=== PATIENT | female | born 1995 | race Caucasian/White ===

== ENCOUNTER 2017-09-01 17:57 | Emergency (ER) | payer OTHER ==
[~2017-09-01] VITALS: Ht 160 cm; Wt 50.9 kg
[~2017-09-01 17:57] MED LIST: LAMO25TA PO; SERT25TA PO
[2017-09-01 18:08] VITALS: TEMP 37; Ht 160 cm; Wt 50.9 kg
[2017-09-01] MEDS ORDERED: KETOROLAC TROMETHAMINE 60 MG/2 ML VIAL IM STA (18:35)
[2017-09-01] MEDS ORDERED: DULO60CA44 PO (19:08)
[2017-09-01] MEDS ORDERED: ATOM100C PO (19:08)
[2017-09-01] MEDS ORDERED: AMPH20CA3 PO (19:08)
--- NOTE | 2017-09-01 19:12 | EMERGENCY ROOM VISIT NOTE ---
ED Visit Note First contact with patient: 18:19 CHIEF COMPLAINT: Right upper arm pain, history Nexplanon HISTORY OF PRESENT ILLNESS: This 22-year-old female patient presents to the emergency department, ambulatory, complaining of pain in the right upper arm 5 days. The patient states she has a Nexplanon in this area, which was implanted approximately 2-1/2 years ago. She states she is scheduled to have the device removed in March. The patient states on Saturday she was in class, and a classmate was practicing blood pressures. They performed a blood pressure over the Nexplanon device, and she states since that time, she has been having some numbness in the right upper extremity, worse in the area of the elbow and radiating down towards the forearm, and sharp pain in the area of the device. The patient has been taking intermittent Tylenol without relief of her pain. She states the tingling sensation has been present since this occurred, however has been improving mildly. The sharp pain has not improved in the area of the device. She does feel that the device may have shifted slightly from where it was previously. The patient is uncertain who placed the device, but she does have an appointment with her liberal arts dean scheduled in October. She states it did occur locally. The patient denies any redness, pus, or drainage. She denies any mass or nodule noted. She denies any significant obvious swelling. The patient has full range of motion of the upper extremity. REVIEW OF SYSTEMS: A 6 system review of systems was performed with positives and pertinent negatives listed in the history of present illness. All other systems were reviewed and are negative. ALLERGIES: None MEDICATIONS: Ambien, Strattera, Adderall XR, Cymbalta, Lamictal PMH: ADHD SOCIAL HISTORY: The patient lives locally with her roommate. She denies drug, alcohol, tobacco use. PHYSICAL EXAM: VITALS: Vitals are noted on the nurse's note and reviewed by myself. Vital signs stable. GENERAL: This is a 22-year-old white female, in no acute distress, nondiaphoretic, well-developed well-nourished. SKIN: There is no erythema, edema, or drainage in the area of the Nexplanon device. The device does appear to have shifted extremely minimally from the location of the scar. The device is mobile within the upper arm, and there are no palpable masses or suspicious signs for abscess or cyst noted. There is no obvious hematoma or bruising noted. There is mild tenderness in the area of the Nexplanon. MUSCULOSKELETAL: Full range of motion actively and passively of the right upper extremity at all joints. The patient's strength is 5/5 of the upper extremities bilaterally. EMERGENCY DEPARTMENT COURSE: The patient was seen and evaluated as above. I discussed with the patient that I do not see any suspicious causes for infection or abscess. There is no obvious hematoma. There is no significant noticeable swelling, however I suspect some inflammation due to the pressure of the blood pressure cuff, causing some paresthesias in the upper arm. I did recommend that the patient take scheduled anti-inflammatories for the next 3-5 days and follow-up with her liberal arts dean. The patient was given 60 mg Toradol here in the emergency department and an ice pack to help with inflammation. She was reassessed and is feeling much better. She was encouraged to follow-up outpatient with her liberal arts dean and was in agreement with this plan. Discharge instructions reviewed. The patient was given a homepack for Naproxen to take for the next 3-5 days or until symptoms improve. The patient was discharged home in good condition. I attest that I have personally reviewed the patient's current medication list. Blood Pressure Screening: Patient was found to have a slightly elevated blood pressure due to circumstances. I do not believe that the patient requires hypertension monitoring. Differential diagnosis includes hematoma, abscess, infection, cellulitis, fracture, neurovascular compromise, adverse effect to medication device, and others DIAGNOSIS: Right arm pain The chart was completed utilizing [employer] Speech voice recognition software. Grammatical errors, random word insertions, pronoun errors, and incomplete sentences are an occasional consequence of this system due to software limitations, ambient noise, and hardware issues. Any formal questions or concerns about the content, text, or information contained within the body of this dictation should be directly addressed to the provider for clarification. Problem List Medical Problems: (1) Anxiety Status: Chronic (2) Depression Status: Chronic Current/Historical Medications Scheduled Amphetamine-Dextroamphetamine 20MG (Adderall Xr 20MG), 20 MG PO DAILY Atomoxetine Hcl (Strattera), 100 MG PO DAILY Duloxetine Hcl (Cymbalta), 1 TAB PO DAILY Naproxen (Naprosyn), 500 MG PO BID Allergies Coded Allergies: No Known Allergies (Unverified , 09/01/17) Vital Signs Date Time Temp Pulse Resp B/P (MAP) Pulse Ox O2 Delivery O2 Flow Rate FiO2 09/01/17 19:42 99 20 137/86 98 09/01/17 18:08 37.0 109 16 144/93 97 Room Air Medications Administered Medications (Trade) Dose Ordered Sig/Suzanne Route Start Time Stop Time Status Last Admin Dose Admin Ketorolac Tromethamine (Toradol Inj) 60 mg NOW STAT IM 09/01/17 18:35 09/01/17 18:37 DC 09/01/17 18:44 60 MG Naproxen (Naproxen 250MG Home Pack) 1 homepack UD STAT PO 09/01/17 19:17 09/01/17 19:21 DC 09/01/17 19:40 1 HOMEPACK Departure Information Impression Primary Impression: Arm pain, right Dispostion Home / Self-Care Condition GOOD Prescriptions Naproxen (Naprosyn) 500 Mg Tab 500 MG PO BID, #60 TAB Prov: Salome Pisano, SIDDHARTH 09/01/17 Referrals No Doctor, Assigned (PCP) Patient Instructions My [facility] Additional Instructions You were seen in the emergency department today for right arm pain. I suspect some inflammation related to the recent blood pressure taken in the arm with a Nexplanon device. As discussed, I recommend against any trauma or blood pressures in the future in this arm. Please follow-up with your liberal arts dean this week. Please contact their office regarding the complaint associated with the Nexplanon. Naproxen 500 mg to be used twice daily (every 12 hours), scheduled, for the next 3-5 days. Take with food. Avoid using more than 1000mg in a 24 hour period. Prolonged inappropriate use can lead to stomach upset or ulcers. Do not take any other NSAIDs including ibuprofen, Advil, Aleve, Motrin, Naprosyn while taking this medication. (AND/OR) Acetaminophen(Tylenol) may be used for fever or pain. Use 1000mg every six hours as needed. Avoid using more than 3000mg in a 24 hour period. Use an ice pack with barrier device to help with inflammation and pain. Return to the emergency department for any systemic symptoms including fever, chills, body aches, nausea, vomiting, or any redness, pus, drainage, significantly worsening pain despite aforementioned course, or other concerning symptoms.
[2017-09-01] MEDS ORDERED: NAPROSYN HOME PACK 250 MG VIAL PO STA (19:17)
[2017-09-01] MEDS ORDERED: NAPR-1169 PO (19:21)
[2017-09-01 19:42] VITALS: BP 137/86; PULSE 99; O2SAT 98
== END 2017-09-01 19:44 | disposition home or self-care (01) ==
LOC: C.EDB 17:58 → C.EDD 19:44
DX: M79.621 Pain in right upper arm (principal); R20.2 Paresthesia of skin; F90.9 Attention-deficit hyperactivity disorder, unspecified type; F41.9 Anxiety disorder, unspecified; F32.9 Major depressive disorder, single episode, unspecified; Z79.3 Long term (current) use of hormonal contraceptives

== ENCOUNTER → 2017-10-17 | Outpatient (CLI) | payer OTHER ==
[~2017-10-17] MED LIST changes: +AMPH20CA3 PO; +ATOM100C PO; +DULO60CA44 PO; -LAMO25TA PO; +NAPR-1169 PO; -SERT25TA PO
== END | disposition home or self-care (01) ==
LOC: C.PAPS 15:13
PROVIDERS: ATTEND Obstetrics & Gynecology
DX: Z12.4 Encounter for screening for malignant neoplasm of cervix (principal); Z11.3 Encounter for screening for infections with a predominantly sexual mode of transmission